=== PATIENT | male | born 1975 | race Asian ===

== ENCOUNTER 2017-08-29 02:46 | Day surgery (SDC) | payer OTHER ==
[~2017-08-29] VITALS: Ht 172.7 cm; Wt 69.9 kg
[~2017-08-29 02:46] MED LIST: CHOL10005 PO; CHOL500045 PO; GOLYTE PO; HYDR-3503 PO; SIME125T3 PO; [UNRECOGNIZED DRUG - CODE] PO
[2017-08-29] MEDS ORDERED: PROPOFOL EMUL(*) 10MG/ML 20 ML 60 ML ONE (07:16)
[2017-08-29] MEDS ORDERED: LIDOCAINE MPF 1% 5 ML VIAL ONE (07:16)
[2017-08-29] MEDS ORDERED: NORMOSOL R SOLN(*) 1000 ML BAG 1,000 ML IV PRN (09:20)
[2017-08-29] MEDS ORDERED: LIDOCAINE/SOD BICARB 8.4% SYR ID ONE (09:20)
[2017-08-29 09:32] VITALS: BP 124/86
[2017-08-29 11:24] VITALS: BP 100/56
--- NOTE | 2017-08-29 11:36 | Short(Outpt) Discharge Summary ---
Discharge Summary Reason for Hosp/Final Diag: (1) Colon cancer screening Status: Chronic Hospital Course & Plan: Colonoscopy with polypectomy x9 completed without problems. Departure Discharge to: Home, Self Care Discharge Instructions Home Meds Active Scripts Peg/Electrolytes (GOLYTELY SOLUTION) 4,000 Ml Soln, 1 GAL PO ONCE, #1 GAL 0 Refills Prov:MIMA MELO MD 08/01/17 Reported Medications Cranberry Extract (CRANBERRY) 300 Mg Tablet, 300 MG PO QDAY 08/15/17 Cholecalciferol (Vitamin D3) (VITAMIN D3) 1,000 Unit Tablet, 5000 UNIT PO QDAY, TAB 08/15/17 Diet: Regular Activity: As Tolerated Special Instructions: Your colonoscopy was completed without problems and your prep was excellent (Good Job!!). I removed 9 small polyps from your colon and they were sent to pathology. My office will call you in the next week to let you know what the polyps are and when your next colonoscopy should be (3 years if they are all precancerous, 5 years if only 1 or 2 are precancerous, at 51 years old if they are all benign). MIMA MELO MD Aug 29, 2017 11:36
[2017-08-29 12:16] VITALS: BP 107/79
[2017-08-29 12:18] VITALS: BP 111/76
== END 2017-08-29 12:30 | disposition home or self-care (01) ==
LOC: OR 02:46
PROVIDERS: ATTEND Surgery
DX: Z12.11 Encounter for screening for malignant neoplasm of colon (principal); K63.5 Polyp of colon; K62.1 Rectal polyp
CPT/HCPCS: 00811; 45385; 88305; J2001; J2704

== ENCOUNTER → 2018-11-25 | Outpatient (CLI) | payer OTHER ==
[~2018-11-25] MED LIST changes: +BARIUM SULFATE 176 GM BTL PO ONE; +BARIUM SULFATE 340 GM POWD ONE; +PANT40TA65 PO
--- NOTE | 2018-11-25 13:51 | RADIOLOGY IMAGING REPORT ---
FACILITY: [facility] - [place] PATIENT NAME: Alexey Kennedy : 1975 MR: [id number] V: [id number] EXAM DATE: [id number] ORDERING PHYSICIAN: MIMA MELO TECHNOLOGIST: Location: [facility] Patient: Alexey Kennedy : 1975 Visit/Account:[id number] Date of Sevice: 11/25/2018 Exam type: XR UPPER GI SERIES W/O KUB History: Epigastric pain, loss of appetite Comparison: Esophagram 04/07/2015. Findings: Fluoroscopy was used for the purposes of an upper GI. 1.8 minutes of fluoroscopy time was used for a total DAP of 1549.61 microGy/m2. Esophageal motility was normal. There was penetration of contrast into the larynx but no evidence fo r graciela aspiration. No definite hiatal hernia or gastroesophageal reflux. Stomach and proximal small bowel are normal. IMPRESSION: 1. Penetration of barium into the larynx but no evidence for aspiration. Otherwise, unremarkable up per GI. Report Dictated By: Asa Tejada MD at 11/25/2018 1:17 PM Report E-Signed By: Asa Tejada MD at 11/25/2018 1:45 PM WSN:[email or web address]
== END ==
LOC: RAD 11-20 07:24
PROVIDERS: ATTEND Surgery
DX: R10.13 Epigastric pain (principal); R63.4 Abnormal weight loss; Z87.11 Personal history of peptic ulcer disease
CPT/HCPCS: 74240

== ENCOUNTER → 2018-11-26 | Outpatient (CLI) | payer OTHER ==
[~2018-11-26] MED LIST changes: -BARIUM SULFATE 176 GM BTL PO ONE; -BARIUM SULFATE 340 GM POWD ONE
[2018-11-26 09:58] LABS: PLATELET COUNT, AUTOMATED 246 K/uL (150-450)
== END ==
LOC: LAB 09:28
PROVIDERS: ATTEND Surgery
DX: Z02.9 Encounter for administrative examinations, unspecified (principal)
CPT/HCPCS: 36415; 82040; 82247; 82310; 82374; 82435; 82565; 82947; 83516; 84075; 84132; 84155; 84295; 84443; 84450; 84460; 84520; 85025